=== PATIENT | male | born 1995 | race Two or more races ===

== ENCOUNTER 2020-01-13 06:18 | Emergency (ER) | payer SELFPAY ==
[~2020-01-13] VITALS: Ht 165.1 cm; Wt 72.0 kg
--- NOTE | 2020-01-13 06:51 | PHYS DOC ---
Past Medical History Past Medical History: No Pertinent History Past Surgical History: No Surgical History General Adult EDM: Chief Complaint: NAUSEA/VOMITING/DIARRHA HPI: HPI: Patient is a 24 year old male who presents with chief complaint of headache and nausea vomiting began 3:00pm yesterday patient describes an parietal headache that is bilateral and gradual in onset and intermittent in nature. Patient says he felt hot overnight but has not taken his temperature. Patient just got back from [place] 2 days ago. 2 weeks ago in [place] patient had unprotected receptive anal sex and over the last 3 or 4 days has had left inguinal lymphadenopathy and purulent drainage from his rectum as well as some irritation to his anus. Patient was seen by physician in [place] and given a shot of something and then placed on clindamycin as well as anti-inflammatories. Headache is nonradiating Review of Systems: Review of Systems: Constitutional: Denies fever or chills. [] Eyes: Denies change in visual acuity. [] HENT: Denies nasal congestion or sore throat. [] Respiratory: Denies cough or shortness of breath. [] Cardiovascular: Denies chest pain or edema. [] GI: Denies abdominal pain, but has nausea vomiting : Denies dysuria. [] Musculoskeletal: Denies back pain or joint pain. [] Integument: Denies rash. [] Neurologic: Denies headache, focal weakness or sensory changes. [] Endocrine: Denies polyuria or polydipsia. [] Lymphatic: Complains of left inguinal swelling Psychiatric: Denies depression or anxiety. [] Heart Score: Risk Factors: Risk Factors: DM, Current or recent (<one month) smoker, HTN, HLP, family history of CAD, obesity. Risk Scores: Score 0 - 3: 2.5% MACE over next 6 weeks - Discharge Home Score 4 - 6: 20.3% MACE over next 6 weeks - Admit for Clinical Observation Score 7 - 10: 72.7% MACE over next 6 weeks - Early Invasive Strategies Physical Exam: PE: Constitutional: Well developed, well nourished, no acute distress, non-toxic appearance. [] HENT: Normocephalic, atraumatic, bilateral external ears normal, no trismus nose normal. [] Eyes: PERRLA, EOMI, conjunctiva normal, no discharge. [] Neck: Normal range of motion, no tenderness, supple, no stridor. [] Full range of motion negative Kernig negative Brudzinski sign no meningeal signs Cardiovascular:Heart rate regular rhythm, peripheral pulses intact, cap refill brisk Lungs & Thorax: Bilateral breath sounds clear, no respiratory distress Abdomen: Bowel sounds normal, soft, no tenderness, no masses, no pulsatile masses. [] exam: Tender left inguinal lymphadenopathy, rectal exam with some maceration externally with some purulent drainage very tender Skin: Warm, dry, no erythema, no rash. [] Back: No tenderness, no CVA tenderness. [] Extremities: No tenderness, no cyanosis, no clubbing, ROM intact, no edema. [] Neurologic: Alert and oriented X 3, normal motor function, normal sensory function, no focal deficits noted. [] Psychologic: Affect normal, judgement normal, mood normal. [] Current Patient Data: Labs: Laboratory Tests Test 01/13/20 06:32 01/13/20 07:00 Urine Collection Type Unknown Urine Color Yellow Urine Clarity Clear Urine pH 6.0 Urine Specific [place] 1.020 Urine Protein Negative mg/dL Urine Glucose (UA) Negative mg/dL Urine Ketones (Stick) 15 mg/dL Urine Blood Negative Urine Nitrite Negative Urine Bilirubin Negative Urine Urobilinogen Dipstick 1.0 mg/dL Urine Leukocyte Esterase Negative Urine RBC 0 /HPF Urine WBC 1-4 /HPF Urine Squamous Epithelial Cells Few /LPF Urine Bacteria 0 /HPF Urine Mucus Marked /LPF White Blood Count 10.4 x10^3/uL Red Blood Count 4.65 x10^6/uL Hemoglobin 15.8 g/dL Hematocrit 44.3 % Mean Corpuscular Volume 95 fL Mean Corpuscular Hemoglobin 34 pg Mean Corpuscular Hemoglobin Concent 36 g/dL Red Cell Distribution Width 12.5 % Platelet Count 227 x10^3/uL Neutrophils (%) (Auto) 81 % Lymphocytes (%) (Auto) 13 % Monocytes (%) (Auto) 6 % Eosinophils (%) (Auto) 0 % Basophils (%) (Auto) 0 % Neutrophils # (Auto) 8.4 x10^3/uL Lymphocytes # (Auto) 1.3 x10^3/uL Monocytes # (Auto) 0.6 x10^3/uL Eosinophils # (Auto) 0.0 x10^3/uL Basophils # (Auto) 0.0 x10^3/uL Prothrombin Time 13.7 SEC Prothromb Time International Ratio 1.1 Activated Partial Thromboplast Time 28 SEC Sodium Level 141 mmol/L Potassium Level 3.3 mmol/L Chloride Level 102 mmol/L Carbon Dioxide Level 29 mmol/L Anion Gap 10 Blood Urea Nitrogen 12 mg/dL Creatinine 1.0 mg/dL Estimated GFR (Cockcroft-Gault) 91.0 BUN/Creatinine Ratio 12 Glucose Level 122 mg/dL Lactic Acid Level 1.4 mmol/L Calcium Level 8.9 mg/dL Total Bilirubin 1.0 mg/dL Aspartate Amino Transf (AST/SGOT) 17 U/L Alanine Aminotransferase (ALT/SGPT) 29 U/L Alkaline Phosphatase 92 U/L Total Protein 7.9 g/dL Albumin 4.2 g/dL Albumin/Globulin Ratio 1.1 Lipase 83 U/L Current Medications Medications (Trade) Dose Ordered Sig/Mary Route PRN Reason Start Time Stop Time Status Last Admin Dose Admin Sodium Chloride 1,000 ml @ 1,000 mls/hr Q1H IV 01/13/20 07:00 01/13/20 07:59 DC 01/13/20 07:02 Prochlorperazine Edisylate (Compazine) 10 mg 1X ONCE IV 01/13/20 07:00 01/13/20 07:01 DC 01/13/20 07:14 Ceftriaxone Sodium (Rocephin) 1 gm 1X ONCE IVP 01/13/20 07:15 01/13/20 07:16 DC 01/13/20 07:13 Iohexol (Omnipaque 300 Mg/ml) 75 ml 1X ONCE IV 01/13/20 07:15 01/13/20 07:16 DC 01/13/20 07:15 Info (CONTRAST GIVEN -- Rx MONITORING) 1 each PRN DAILY PRN MC SEE COMMENTS 01/13/20 07:15 01/15/20 07:14 Ondansetron HCl (Zofran) 4 mg 1X ONCE IVP 01/13/20 07:30 01/13/20 07:36 DC 01/13/20 08:13 Ketorolac Tromethamine (Toradol 15mg Vial) 15 mg 1X ONCE IVP 01/13/20 09:30 01/13/20 09:31 Ketorolac Tromethamine (Toradol 30mg Vial) 30 mg STK-MED ONCE .ROUTE 01/13/20 09:22 01/13/20 09:23 DC Vital Signs: Vital Signs Date Time Temp Pulse Resp B/P (MAP) Pulse Ox O2 Delivery O2 Flow Rate FiO2 01/13/20 06:30 98.4 58 20 149/70 (96) 97 Room Air 98.4 EKG: EKG: [] Radiology/Procedures: Radiology/Procedures: []IMAGING REPORT Signed PATIENT: SANDRA RINALDI ACCOUNT: [id number] : 1995 LOCATION: ER AGE: 24 SEX: M EXAM STATUS: REG ER ORD. PHYSICIAN: CAMILLE NEW MD REASON: n/v,nausea,vomiting PROCEDURE: PORTABLE CHEST 1V EXAMINATION: PORTABLE CHEST 1V CLINICAL HISTORY: Nausea/vomiting, chest pain EXAM DATE/TIME: 01/13/2020 6:54 AM COMPARISON: None FINDINGS: Lines, tubes, and devices: None. Cardiomediastinal silhouette: Within normal limits. Lungs and pleura: No evidence of focal airspace consolidation or pleural effusion. Pulmonary vasculature unremarkable. Bones and soft tissues: No acute osseous abnormality. IMPRESSION: No evidence of acute cardiopulmonary abnormality. Electronically signed by: Rm Fine DO (01/13/2020 7:38 AM) [id number] DICTATED and SIGNED BY: RM FINE DO DATE: 01/13/20 0738 [facility] [address] [place] [address] IMAGING REPORT Signed PATIENT: SANDRA RINALDI ACCOUNT: [id number] : 1995 LOCATION: ER AGE: 24 SEX: M EXAM STATUS: REG ER ORD. PHYSICIAN: CAMILLE NEW MD REASON: rectal discharge, unprotected anal sex 2 weeks ago PROCEDURE: CT ABD PELV W/ IV CONTRST ONLY Exam: CT abdomen/pelvis with intravenous contrast Indication: Rectal discharge Comparison: None Technique: Helical CT imaging performed of the abdomen and pelvis after the intravenous administration of 75 mL Omnipaque 300 intravenous contrast. Sagittal and coronal reformats were obtained. One or more of the following individualized dose reduction techniques were utilized for this examination: 1. Automated exposure control 2. Adjustment of the mA and/or kV according to patient size 3. Use of iterative reconstruction technique. Findings: Lower chest: Small focus of consolidative opacities in the posterior medial right lower lobe, likely atelectasis. The lung bases are otherwise clear. Heart size is normal. Liver: Normal. Gallbladder/Biliary Tree: Normal. Pancreas: Normal. Spleen: Mild splenomegaly, with the spleen measuring 15 cm in length. Adrenal Glands: Normal. Kidneys/Ureters/Bladder: Normal. No hydronephrosis or urolithiasis. Reproductive Organs: Prostate gland is normal. Stomach, small bowel, and colon: Stomach, small bowel, and appendix are normal. No small bowel obstruction. The colon including the rectum are normal without evidence of inflammation. No evidence of perirectal or perianal abscess. Vasculature: Abdominal aorta is normal in caliber. Lymph Nodes: No lymphadenopathy. Peritoneum and retroperitoneum: No free fluid or free air. No organized fluid collection. Bones: No acute osseous abnormality. IMPRESSION: 1. No acute intra-abdominal/pelvic abnormality. 2. Mild splenomegaly. 3. Small focus of consolidative opacities in the left lower lobe. This is likely atelectasis, however pneumonia or aspiration not entirely excluded. Electronically signed by: Joyce Mandujano MD (01/13/2020 8:24 AM) [id number] DICTATED and SIGNED BY: JOYCE MANDUJANO MD DATE: 01/13/20 0824 Course & Med Decision Making: Course & Med Decision Making Pertinent Labs and Imaging studies reviewed. (See chart for details) [] 24-year-old male presents with a chief complaint of a headache and nausea vomiting. On reassessment his nausea vomiting is much better but he still c omplains of a headache. Patient has a normal neurological exam and no meningeal signs and no fever, doubt meningitis or subarachnoid hemorrhage or intracranial process. Patient admits to rectal intercourse that was unprotected 2 weeks ago in [place] and has some purulent drainage from his rectum. Patient will get IV Rocephin here to cover gonorrhea. Patient's antibiotics was to be switched to doxycycline. CT was done to rule out rectal process and that was negative. Rest of his labs are reassuring. Return precautions given. Patient will be tested for syphilis as well as HIV. Tori Disclaimer: Tori Disclaimer: This electronic medical record was generated, in whole or in part, using a voice recognition dictation system. Departure Departure Impression: Primary Impression: Headache Additional Impressions: Vomiting Rectal discharge Disposition: 01 HOME, SELF-CARE Condition: STABLE Referrals: NO PCP (PCP) pcp (PCP/Family) 2-3 days Patient Instructions: General Headache Without Cause, Nausea and Vomiting Additional Instructions: EMERGENCY DEPARTMENT GENERAL DISCHARGE INSTRUCTIONS THANK YOU for coming to [facility] Emergency Department (ED) today and trusting us with your care. We trust that you had a positive experience in our Emergency Department. If you wish to speak to the department Management you can contact the counseling department chair at . YOUR FOLLOW UP INSTRUCTIONS ARE FOLLOWS: Do you have a private doctor? If you do not have a private doctor, please ask for a resource list of physicians or clinics that may be able to assist you with follow up care. The Emergency Physician has interpreted your x-rays. The X-ray specialist will also review them. If there is a change in the findings you will be notified in 48 hours when at all possible. A lab test or lab culture may have been done, your results will be reviewed and you will be notified if you need a change in treatment. ADDITIONAL INSTRUCTIONS AND INFORMATION Your care today has been supervised by a physician who is specially trained in emergency care. Many problems require more than one evaluation for a complete diagnosis and treatment. We recommend that you schedule your follow up appointment as recommended to ensure complete treatment of your illness or injury. If you are unable to obtain follow up care and continue to have a problem, or if your condition worsens we recommend that you return to the ED. We are not able to safely determine your condition over the phone nor are we able to give sound medical advice over the phone. For these safety reasons, if you call for medical advice we will ask you to come to the ED for further evaluation If you have any questions regarding these discharge instructions please call the ED at . SAFETY INFORMATION In the interest of safety, wellness, and injury prevention; we encourage you to wear your seatbelt, if you smoke; quit smoking, and we encourage your family to use protective helmet for bicycling and other sporting events that present an increased risk for head injury. IF YOUR SYMPTOMS WORSEN OR NEW SYMPTOMS DEVELOP, OR YOU HAVE CONCERNS ABOUT YOUR CONDITION; OR IF YOUR CONDITION WORSENS WHILE YOU ARE WAITING FOR YOUR FOLLOW UP APPOINTMENT; EITHER CONTACT YOUR PRIMARY CARE DOCTOR, THE PHYSICIAN WHOSE NAME AND NUMBER YOU WERE GIVEN, OR RETURN TO THE ED IMMEDIATELY. Stop the clindamycin and start taking the doxycycline Scripts Doxycycline Monohydrate (DOXYCYCLINE MONOHYDRATE) 100 Mg Capsule 1 CAP PO BID, #20 CAP Prov: CAMILLE NEW MD 01/13/20 Prochlorperazine Maleate (Compazine) 10 Mg Tablet 1 TAB PO Q6HRS for nausea for 4 Days, #16 TAB 0 Refills Prov: CAMILLE NEW MD 01/13/20 Justicifation of Admission Dx: Justifications for Admission: Justification of Admission Dx: N/A CAMILLE NEW MD Jan 13, 2020 06:51
[2020-01-13] MEDS ORDERED: IV NORMAL SALINE 1000ML BAG 1,000 ML IV SCH (07:00)
[2020-01-13] MEDS ORDERED: PROCHLORPERAZINE 10 MG/2 ML VIAL. IV ONE (07:00)
[2020-01-13] MEDS ORDERED: CONTRAST GIVEN. MC PRN (07:15)
[2020-01-13] MEDS ORDERED: cefTRIAXone IV Push 1 GM VIAL. IVP ONE (07:15)
[2020-01-13] MEDS ORDERED: IOHEXOL 300 MG/ML 100ML VIAL. IV ONE (07:15)
[2020-01-13 07:17] LABS: BILIRUBIN,URINE NEGATIVE (NEG); CLARITY,URINE CLEAR; COLOR,URINE YELLOW; NITRITE,URINE NEGATIVE (NEG); PROTEIN,URINE NEGATIVE (NEG-TRACE)
[2020-01-13] MEDS ORDERED: ONDANSETRON PF 4 MG/2 ML VIAL. IVP ONE (07:30)
[2020-01-13 07:34] LABS: CALCIUM 8.9 mg/dL (8.5-10.1); POTASSIUM 3.3 mmol/L (3.5-5.1)
[2020-01-13 07:39] LABS: ALBUMIN 4.2 g/dL (3.4-5.0); ALBUMIN/GLOBULIN RATIO 1.1 (1.0-1.7); TOTAL PROTEIN 7.9 g/dL (6.4-8.2)
--- NOTE | 2020-01-13 07:41 | RAD ---
EXAMINATION: PORTABLE CHEST 1V CLINICAL HISTORY: Nausea/vomiting, chest pain EXAM DATE/TIME: 01/13/2020 6:54 AM COMPARISON: None FINDINGS: Lines, tubes, and devices: None. Cardiomediastinal silhouette: Within normal limits. Lungs and pleura: No evidence of focal airspace consolidation or pleural effusion. Pulmonary vasculature unremarkable. Bones and soft tissues: No acute osseous abnormality. IMPRESSION: No evidence of acute cardiopulmonary abnormality. Electronically signed by: Rm Tapia DO (01/13/2020 7:38 AM) [id number]
[2020-01-13 07:42] LABS: BASO % 0 % (0-3); EOS % 0 % (0-3); HEMATOCRIT 44.3 % (39.0-53.0); HEMOGLOBIN 15.8 g/dL (13.0-17.5); LYMPH # 1.3 x10^3/uL (1.0-4.8); LYMPH % 13 % (24-48); MEAN CORPUSCULAR HEMOGLOBIN 34 pg (25-35); MEAN CORPUSCULAR HGB CONC 36 g/dL (31-37); MEAN CORPUSCULAR VOLUME 95 fL (79-100); MONO # 0.6 x10^3/uL (0.0-1.1); MONO % 6 % (0-9); NEUT # 8.4 x10^3/uL (1.8-7.7); NEUT % 81 % (31-73); PLATELET COUNT 227 x10^3/uL (140-400); RED BLOOD COUNT 4.65 x10^6/uL (4.30-5.70); RED CELL DISTRIBUTION WIDTH 12.5 % (11.5-14.5); WHITE BLOOD COUNT 10.4 x10^3/uL (4.0-11.0)
[2020-01-13 07:54] LABS: BACTERIA,URINE 0 /HPF (0-FEW); RBC,URINE 0 /HPF (0-2); SQUAMOUS EPITHELIAL CELL,UR FEW /LPF
[2020-01-13 07:57] LABS: PROTHROMBIN TIME PATIENT 13.7 SEC (11.7-14.0)
--- NOTE | 2020-01-13 08:27 | RAD ---
Exam: CT abdomen/pelvis with intravenous contrast Indication: Rectal discharge Comparison: None Technique: Helical CT imaging performed of the abdomen and pelvis after the intravenous administration of 75 mL Omnipaque 300 intravenous contrast. Sagittal and coronal reformats were obtained. One or more of the following individualized dose reduction techniques were utilized for this examination: 1. Automated exposure control 2. Adjustment of the mA and/or kV according to patient size 3. Use of iterative reconstruction technique. Findings: Lower chest: Small focus of consolidative opacities in the posterior medial right lower lobe, likely atelectasis. The lung bases are otherwise clear. Heart size is normal. Liver: Normal. Gallbladder/Biliary Tree: Normal. Pancreas: Normal. Spleen: Mild splenomegaly, with the spleen measuring 15 cm in length. Adrenal Glands: Normal. Kidneys/Ureters/Bladder: Normal. No hydronephrosis or urolithiasis. Reproductive Organs: Prostate gland is normal. Stomach, small bowel, and colon: Stomach, small bowel, and appendix are normal. No small bowel obstruction. The colon including the rectum are normal without evidence of inflammation. No evidence of perirectal or perianal abscess. Vasculature: Abdominal aorta is normal in caliber. Lymph Nodes: No lymphadenopathy. Peritoneum and retroperitoneum: No free fluid or free air. No organized fluid collection. Bones: No acute osseous abnormality. IMPRESSION: 1. No acute intra-abdominal/pelvic abnormality. 2. Mild splenomegaly. 3. Small focus of consolidative opacities in the left lower lobe. This is likely atelectasis, however pneumonia or aspiration not entirely excluded. Electronically signed by: Joyce Mandujano MD (01/13/2020 8:24 AM) [id number]
[2020-01-13 08:58] VITALS: BP 128/60
[2020-01-13] MEDS ORDERED: KETOROLAC 30 MG/ML VIAL. ONE (09:22)
[2020-01-13] MEDS ORDERED: KETOROLAC 15 MG/ML VIAL. IVP ONE (09:30)
[2020-01-13] MEDS ORDERED: PROC10TA57 PO (09:39)
[2020-01-13] MEDS ORDERED: DOXY100C14 PO (09:40)
[2020-01-14 19:10] LABS: GC PROBE Negative (Negative)
== END 2020-01-13 09:47 | disposition home or self-care (01) ==
LOC: ER 06:18
DX: R51 Headache (principal); K62.89 Other specified diseases of anus and rectum; R11.2 Nausea with vomiting, unspecified; R60.0 Localized edema
CPT/HCPCS: 36415; 71045; 74177; 80053; 81001; 83605; 83690; 85025; 85610; 85730; 86592; 86703; 87491; 87591; 96361; 96374; 96375; 99285; J0696; J0780; J2405; J7030; Q9967